=== PATIENT | male | born 1990 | race African-American/Black ===

== ENCOUNTER 2022-10-14 12:54 | Emergency (ER) | payer MEDICAID ==
[~2022-10-14] VITALS: Ht 180.3 cm; Wt 127.0 kg
[2022-10-14 13:10] VITALS: TEMP 97.9; O2SAT 98
[2022-10-14] MEDS ORDERED: LIDOCAINE 5% PATCH TOP SCH (14:00)
[2022-10-14] MEDS ORDERED: BACLOFEN 10MG TABLET PO ONE (14:00)
[2022-10-14] MEDS ORDERED: KETOROLAC 60MG/2ML VIAL IM ONE (14:00)
[2022-10-14] MEDS ORDERED: TOPUD MT (14:01)
[2022-10-14] MEDS ORDERED: NAPR-681 MT (14:01)
[2022-10-14] MEDS ORDERED: LIDO700A15 TP (14:01)
[2022-10-14 14:18] VITALS: BP 144/83; PULSE 107; RESP 20
== END 2022-10-14 14:37 | disposition home or self-care (01) ==
LOC: ER 12:54
DX: S39.012A Strain of muscle, fascia and tendon of lower back, initial encounter (principal); X58.XXXA Exposure to other specified factors, initial encounter; Y93.89 Activity, other specified; Y92.89 Other specified places as the place of occurrence of the external cause; Y99.8 Other external cause status
CPT/HCPCS: 99283; 96372; J1885